=== PATIENT | male | born 1985 | race Caucasian/White ===

== ENCOUNTER 2018-11-18 13:33 | Outpatient (CLI) | payer BC ==
--- NOTE | 2018-11-18 15:47 | CT ---
PARANASAL SINUS CT NONCONTRAST: CLINICAL HISTORY: Chronic sinusitis, 33-year-old male. COMPARISON: Reference is made to a facial CT of 01/22/2017. FINDINGS: Frontal sinus is patent. Minimal mucosal thickening is seen at the ethmoid sinus. There is a retent ion cyst at the lateral aspect of the left maxillary sinus with mild mucosal thickening. There is tr nanette mucosal thickening of the right maxillary sinus which is otherwise patent. Sphenoid sinus is und er pneumatized but patent. No significant opacification of either maxillary antrum. No evidence of otomastoid effusion. There is evidence of a chronic-appearing deformity of the right globe with abnormal configuration of the lens and evidence of a coloboma, posteriorly. These findings are incompletely assessed on the ba sis of this exam. IMPRESSION: 1. Mild mucosal thickening/retention cyst formation of the paranasal sinuses without significant acu te inflammatory disease. 2. 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 Consider followup with MRI of orbits as necessary for further evaluation. POS: JANETH
--- NOTE | 2018-11-18 16:35 | CT ---
TEMPORAL BONE CT: History: Conductive hearing loss for three years. Left sided hearing loss. FINDINGS: Axial images are obtained with coronal reconstructed images performed using temporal bone algorithm. The patient has a hypoplastic C1 cervical arch. Right temporal bone: There is some soft tissue debris in the right external auditory canal, possibly representing cerumen or right external auditory canal lesion. Correlate with visualization. The right and left temporal bones are otherwise unremarkable. No evidence of middle ear abnormality is seen bi laterally. No definite evidence of middle ear ossicle pathology is seen. The tympanic membranes are u nremarkable. Mastoid air cells are well aerated. No evidence of hypo, epi, or mesotympanum middle ear pathology seen. The cochlea, vestibule, and semicircular canals are unremarkable. IMPRESSION: Normal bilateral temporal bone CT. Some soft tissue debris seen in the right external auditory canal. POS: RAMY
== END 2018-11-18 13:34 | disposition home or self-care (01) ==
LOC: BICCT 13:33
PROVIDERS: ATTEND Specialist
DX: J32.9 Chronic sinusitis, unspecified (principal); H90.2 Conductive hearing loss, unspecified; H57.89 Other specified disorders of eye and adnexa
CPT/HCPCS: 36415; 70480; 80053; 80061; 83036; 84443; 85025

== ENCOUNTER 2023-06-01 10:30 | Outpatient (CLI) | payer BC | END 2023-06-01 10:31 | disposition home or self-care (01) | LOC: RAD 10:30 | PROVIDERS: ATTEND Family Medicine | DX: Z00.00 Encounter for general adult medical examination without abnormal findings (principal) ==

== ENCOUNTER 2023-07-26 16:01 | Emergency (ER) | payer BC ==
[~2023-07-26 16:01] MED LIST: Iopamidol 370 76% 100 ML VIAL ONE
[2023-07-26] MEDS ORDERED: predniSONE 20 MG TAB ONE (23:41)
== END 2023-07-26 23:40 | disposition home or self-care (01) ==
LOC: ERS 16:01
DX: G51.0 Bell's palsy (principal); G89.18 Other acute postprocedural pain; H66.92 Otitis media, unspecified, left ear; H73.92 Unspecified disorder of tympanic membrane, left ear; I10 Essential (primary) hypertension; Z79.899 Other long term (current) drug therapy
CPT/HCPCS: 70481; J7512; Q9967